=== PATIENT | female | born 1975 | race Asian ===

== ENCOUNTER 2017-11-15 10:17 | Emergency (ER) | payer OTHER ==
[~2017-11-15] VITALS: Ht 162.6 cm; Wt 78.2 kg
[2017-11-15 10:25] VITALS: BP 149/93; Ht 162.6 cm; Wt 78.2 kg
== END 2017-11-15 12:50 | disposition home or self-care (01) ==
LOC: ED 10:17
DX: L50.9 Urticaria, unspecified (principal)
CPT/HCPCS: J2930